=== PATIENT | female | born 1930 | race Caucasian/White ===

== ENCOUNTER 2016-07-15 18:46 | Inpatient (IN) | payer MEDICARE, BC ==
[~2016-07-15 18:46] MED LIST: A THRU Z SELEC1 EAC5 PO; ACETAMINOPHEN500 M1 PO; ACETAMINOPHEN500 M5; ACID CONTROLLER20 MG PO; BENAZEPRIL HCL40 MG PO; DUONEB 2.5-0.5 M3 ML IH; FERROUS SULFAT325 MG PO; FLONASE ALLERG9.9 ML; FLONASE16 G1; FUROSEMIDE40 MG PO; K-DUR10 MEQ PO; LASIX40 M1 PO; LEVOXYL137 MC2 PO; LEVOXYL150 MCG PO; METOPROLOL SUCC50 M1 PO; MILK OF MA400 MG/5 M PO; MIRALAX17 G2 PO; MIRALAX17 GM PO; OMEPRAZOLE20 M2 PO; OMEPRAZOLE20 M3 PO; POTASSIUM CHLO10 ME1 PO; PROPAFENONE HC225 MG PO; SPIRIVA18 MC1 IH; SPIRIVA18 MCG IH; TYLENOL325 MG PO; ULTRAM50 MG PO; VERAPAMIL SR180 MG PO; VERAPAMIL240 MG/TA1 PO; XARELTO15 M1 PO; [UNRECOGNIZED DRUG - OTHER] PO
[2016-07-15 23:49] LABS: BASO % 0.1 % (0-2); HCT-HEMATOCRIT 40.4 % (34.0-49.0); HGB-HEMOGLOBIN 13.6 gm/dl (12.0-15.5); IMMATURE GRANULOCYTES ABSOLUTE 0.05 tho/cmm (0-0.03); IMMATURE GRANULOCYTES PERCENT 0.4 % (0-0.3); LYMPH % 2.3 % (20-45); LYMPH ABSOLUTE COUNT 0.3 tho/cmm (0.8-4.5); MCH (MEAN CORPUSCULAR HGB) 33.9 pg (28.0-32.0); MCHC MEAN CORPUSCULAR HGB CONC 33.7 % (32.0-36.0); MCV (MEAN CELL VOLUME) 100.7 fl (82.0-96.0); MEAN PLATELET VOLUME 10.8 cmc (9.4-12.4); MONOCYTE ABSOLUTE COUNT 0.4 tho/cmm (0.0-1.2); NEUTROPHIL ABSOLUTE COUNT 12.1 tho/cmm (1.6-8.0); NEUTROPHIL-AUTOMATED 12.1 tho/cmm (1.6-8.0); NEUTROPHILS % 94.2 % (40-80); PLATELET COUNT 179 tho/cmm (150-450); RED BLOOD COUNT 4.01 mil/cmm (4.00-5.20); RED CELL DISTRIBUTION WIDTH 12.9 % (12.4-16.4); WHITE BLOOD COUNT 12.9 tho/cmm (4.0-10.0)
[2016-07-15] MEDS ORDERED: PROAIR HFA8.5 GM (23:57)
[2016-07-15] MEDS ORDERED: COLACE100 M1 PO (23:59)
[2016-07-16 00:05] LABS: ANION GAP 9 mmol/L (0-20); BLOOD UREA NITROGEN 24 mg/dl (6-24); CALCIUM 8.6 mg/dl (8.5-10.5); CARBON DIOXIDE-VENOUS 36 mmol/L (22-32); CHLORIDE 93 mmol/l (96-110); CREATININE 0.56 mg/dl (0.50-1.10); GLUCOSE 149 mg/dL (70-110); SODIUM 134 mmol/L (135-145); eGFR VALUE FOR BLACK >90 mL/Min
[2016-07-16 00:06] LABS: POTASSIUM 3.7 mmol/L (3.7-5.1)
[2016-07-16 00:57] LABS: URINE APPEARANCE CLEAR; URINE BILIRUBIN NEGATIVE (NEG); URINE BLOOD LARGE (NEG); URINE COLOR YELLOW; URINE GLUCOSE (UA) NEGATIVE (NEG); URINE KETONE MODERATE (NEG); URINE LEUKOCYTE ESTERASE POSITIVE (NEG); URINE NITRITE POSITIVE (NEG); URINE PROTEIN MODERATE (NEG)
[2016-07-16 01:13] LABS: URINE BACTERIA 1+; URINE RBC 15-20 /[HPF] (0-5); URINE WBC 40-501 /[HPF] (0-5)
[2016-07-16 05:04] LABS: HCT-HEMATOCRIT 36.9 % (34.0-49.0); HGB-HEMOGLOBIN 11.9 gm/dl (12.0-15.5); IMMATURE GRANULOCYTES ABSOLUTE 0.02 tho/cmm (0-0.03); IMMATURE GRANULOCYTES PERCENT 0.2 % (0-0.3); LYMPH ABSOLUTE COUNT 0.4 tho/cmm (0.8-4.5); MCH (MEAN CORPUSCULAR HGB) 33.2 pg (28.0-32.0); MCHC MEAN CORPUSCULAR HGB CONC 32.2 % (32.0-36.0); MCV (MEAN CELL VOLUME) 103.1 fl (82.0-96.0); MEAN PLATELET VOLUME 10.5 cmc (9.4-12.4); MONO % 1.4 % (0-12); MONOCYTE ABSOLUTE COUNT 0.2 tho/cmm (0.0-1.2); NEUTROPHIL ABSOLUTE COUNT 12.6 tho/cmm (1.6-8.0); NEUTROPHIL-AUTOMATED 12.6 tho/cmm (1.6-8.0); NEUTROPHILS % 95.4 % (40-80); PLATELET COUNT 166 tho/cmm (150-450); RED BLOOD COUNT 3.58 mil/cmm (4.00-5.20); RED CELL DISTRIBUTION WIDTH 13.1 % (12.4-16.4); WHITE BLOOD COUNT 13.2 tho/cmm (4.0-10.0)
[2016-07-16 05:24] LABS: ANION GAP 9 mmol/L (0-20); BLOOD UREA NITROGEN 25 mg/dl (6-24); CALCIUM 7.7 mg/dl (8.5-10.5); CARBON DIOXIDE-VENOUS 34 mmol/L (22-32); CHLORIDE 94 mmol/l (96-110); GLUCOSE 184 mg/dL (70-110); POTASSIUM 3.3 mmol/L (3.7-5.1); SODIUM 134 mmol/L (135-145); eGFR VALUE FOR BLACK 63 mL/Min
[2016-07-16 05:29] LABS: CREATININE 0.94 mg/dl (0.50-1.10)
[2016-07-16 23:42] LABS: HCT-HEMATOCRIT 34.9 % (34.0-49.0); HGB-HEMOGLOBIN 11.2 gm/dl (12.0-15.5); IMMATURE GRANULOCYTES ABSOLUTE 0.05 tho/cmm (0-0.03); IMMATURE GRANULOCYTES PERCENT 0.4 % (0-0.3); LYMPH % 3.9 % (20-45); LYMPH ABSOLUTE COUNT 0.5 tho/cmm (0.8-4.5); MCH (MEAN CORPUSCULAR HGB) 33.3 pg (28.0-32.0); MCHC MEAN CORPUSCULAR HGB CONC 32.1 % (32.0-36.0); MCV (MEAN CELL VOLUME) 103.9 fl (82.0-96.0); MEAN PLATELET VOLUME 10.3 cmc (9.4-12.4); MONO % 4.1 % (0-12); MONOCYTE ABSOLUTE COUNT 0.5 tho/cmm (0.0-1.2); NEUTROPHIL ABSOLUTE COUNT 11.7 tho/cmm (1.6-8.0); NEUTROPHIL-AUTOMATED 11.7 tho/cmm (1.6-8.0); NEUTROPHILS % 91.6 % (40-80); PLATELET COUNT 170 tho/cmm (150-450); RED BLOOD COUNT 3.36 mil/cmm (4.00-5.20); RED CELL DISTRIBUTION WIDTH 13.3 % (12.4-16.4); WHITE BLOOD COUNT 12.8 tho/cmm (4.0-10.0)
[2016-07-16 23:54] LABS: ALB/GLOB RATIO 0.6 (0.8-2.0); ALBUMIN 2.5 g/dl (3.5-5.0); ALKALINE PHOSPHATASE 51 U/L (33-138); ALT/SGPT 15 U/L (12-78); ANION GAP 10 mmol/L (0-20); AST/SGOT 15 U/L (10-40); BILIRUBIN,TOTAL 0.8 mg/dl (0-1.5); BLOOD UREA NITROGEN 34 mg/dl (6-24); CALCIUM 7.9 mg/dl (8.5-10.5); CARBON DIOXIDE-VENOUS 35 mmol/L (22-32); CHLORIDE 96 mmol/l (96-110); CREATININE 0.81 mg/dl (0.50-1.10); GLUCOSE 118 mg/dL (70-110); POTASSIUM 3.7 mmol/L (3.7-5.1); SODIUM 137 mmol/L (135-145); eGFR VALUE FOR BLACK 75 mL/Min
[2016-07-17 06:25] LABS: BASO % 0.1 % (0-2); HCT-HEMATOCRIT 34.5 % (34.0-49.0); HGB-HEMOGLOBIN 10.9 gm/dl (12.0-15.5); IMMATURE GRANULOCYTES ABSOLUTE 0.03 tho/cmm (0-0.03); IMMATURE GRANULOCYTES PERCENT 0.2 % (0-0.3); LYMPH % 2.7 % (20-45); LYMPH ABSOLUTE COUNT 0.4 tho/cmm (0.8-4.5); MCHC MEAN CORPUSCULAR HGB CONC 31.6 % (32.0-36.0); MCV (MEAN CELL VOLUME) 104.5 fl (82.0-96.0); MEAN PLATELET VOLUME 10.4 cmc (9.4-12.4); MONOCYTE ABSOLUTE COUNT 0.7 tho/cmm (0.0-1.2); NEUTROPHIL ABSOLUTE COUNT 12.4 tho/cmm (1.6-8.0); NEUTROPHIL-AUTOMATED 12.4 tho/cmm (1.6-8.0); PLATELET COUNT 174 tho/cmm (150-450); RED CELL DISTRIBUTION WIDTH 13.4 % (12.4-16.4); WHITE BLOOD COUNT 13.5 tho/cmm (4.0-10.0)
[2016-07-17 06:46] LABS: ALBUMIN 2.2 g/dl (3.5-5.0); ANION GAP 10 mmol/L (0-20); BLOOD UREA NITROGEN 31 mg/dl (6-24); CALCIUM 7.9 mg/dl (8.5-10.5); CARBON DIOXIDE-VENOUS 36 mmol/L (22-32); CHLORIDE 96 mmol/l (96-110); GLUCOSE 118 mg/dL (70-110); POTASSIUM 3.8 mmol/L (3.7-5.1); SODIUM 138 mmol/L (135-145)
[2016-07-17 06:49] LABS: ALB/GLOB RATIO 0.5 (0.8-2.0); ALKALINE PHOSPHATASE 51 U/L (33-138); ALT/SGPT 16 U/L (12-78); AST/SGOT 12 U/L (10-40); BILIRUBIN,TOTAL 0.5 mg/dl (0-1.5); CREATININE 0.76 mg/dl (0.50-1.10); eGFR VALUE FOR BLACK 81 mL/Min
[2016-07-18 05:48] LABS: HCT-HEMATOCRIT 35.2 % (34.0-49.0); HGB-HEMOGLOBIN 10.8 gm/dl (12.0-15.5); IMMATURE GRANULOCYTES ABSOLUTE 0.06 tho/cmm (0-0.03); IMMATURE GRANULOCYTES PERCENT 0.4 % (0-0.3); LYMPH % 3.3 % (20-45); LYMPH ABSOLUTE COUNT 0.5 tho/cmm (0.8-4.5); MCH (MEAN CORPUSCULAR HGB) 32.6 pg (28.0-32.0); MCHC MEAN CORPUSCULAR HGB CONC 30.7 % (32.0-36.0); MCV (MEAN CELL VOLUME) 106.3 fl (82.0-96.0); MEAN PLATELET VOLUME 10.5 cmc (9.4-12.4); MONOCYTE ABSOLUTE COUNT 0.6 tho/cmm (0.0-1.2); NEUTROPHIL ABSOLUTE COUNT 12.8 tho/cmm (1.6-8.0); NEUTROPHIL-AUTOMATED 12.8 tho/cmm (1.6-8.0); NEUTROPHILS % 92.3 % (40-80); PLATELET COUNT 174 tho/cmm (150-450); RED BLOOD COUNT 3.31 mil/cmm (4.00-5.20); RED CELL DISTRIBUTION WIDTH 13.4 % (12.4-16.4); WHITE BLOOD COUNT 13.8 tho/cmm (4.0-10.0)
[2016-07-18 05:58] LABS: ALB/GLOB RATIO 0.5 (0.8-2.0); ALBUMIN 2.1 g/dl (3.5-5.0); ALKALINE PHOSPHATASE 58 U/L (33-138); ALT/SGPT 15 U/L (12-78); ANION GAP 9 mmol/L (0-20); AST/SGOT 13 U/L (10-40); BILIRUBIN,TOTAL 0.4 mg/dl (0-1.5); BLOOD UREA NITROGEN 28 mg/dl (6-24); CALCIUM 7.9 mg/dl (8.5-10.5); CARBON DIOXIDE-VENOUS 34 mmol/L (22-32); CHLORIDE 98 mmol/l (96-110); GLUCOSE 134 mg/dL (70-110); POTASSIUM 3.9 mmol/L (3.7-5.1); SODIUM 137 mmol/L (135-145); eGFR VALUE FOR BLACK >90 mL/Min
[2016-07-19 11:43] LABS: ABG CO2 ARTERIAL 39 mmol/L (21-27); ARTERIAL BLD GAS O2 SATURATION 94 % (95-98); ARTERIAL PO2 71 mmHg (70-100); BICARBONATE 36 mmol/L (21-28); BLOOD GAS BASE EXCESS 5 mM/L (-/+3)
[2016-07-19 11:45] LABS: ARTERIAL BLOOD GAS PCO2 95 mmHg (32-45)
[2016-07-19 13:31] LABS: ABG CO2 ARTERIAL 36 mmol/L (21-27); ARTERIAL BLD GAS O2 SATURATION 99 % (95-98); BICARBONATE 34 mmol/L (21-28); BLOOD GAS BASE EXCESS 7 mM/L (-/+3)
[2016-07-19 13:32] LABS: ARTERIAL BLOOD GAS PCO2 63 mmHg (32-45); ARTERIAL PO2 142 mmHg (70-100); PH 7.35 Units (7.35-7.45)
[2016-07-21 05:43] LABS: ABG CO2 ARTERIAL 36 mmol/L (21-27); ARTERIAL BLD GAS O2 SATURATION 98 % (95-98); ARTERIAL BLOOD GAS PCO2 50 mmHg (32-45); ARTERIAL PO2 105 mmHg (70-100); BICARBONATE 35 mmol/L (21-28); BLOOD GAS BASE EXCESS 10 mM/L (-/+3); PH 7.46 Units (7.35-7.45)
[2016-07-21 07:06] LABS: BASO % 0.3 % (0-2); EOS % 0.4 % (0-7); HGB-HEMOGLOBIN 12.3 gm/dl (12.0-15.5); IMMATURE GRANULOCYTES ABSOLUTE 0.27 tho/cmm (0-0.03); IMMATURE GRANULOCYTES PERCENT 2.6 % (0-0.3); LYMPH % 9.6 % (20-45); MCH (MEAN CORPUSCULAR HGB) 33.1 pg (28.0-32.0); MCHC MEAN CORPUSCULAR HGB CONC 32.4 % (32.0-36.0); MCV (MEAN CELL VOLUME) 102.2 fl (82.0-96.0); MEAN PLATELET VOLUME 9.8 cmc (9.4-12.4); MONO % 10.4 % (0-12); MONOCYTE ABSOLUTE COUNT 1.1 tho/cmm (0.0-1.2); NEUTROPHIL ABSOLUTE COUNT 7.9 tho/cmm (1.6-8.0); NEUTROPHIL-AUTOMATED 7.9 tho/cmm (1.6-8.0); NEUTROPHILS % 76.7 % (40-80); PLATELET COUNT 218 tho/cmm (150-450); RED BLOOD COUNT 3.72 mil/cmm (4.00-5.20); RED CELL DISTRIBUTION WIDTH 13.3 % (12.4-16.4); WHITE BLOOD COUNT 10.4 tho/cmm (4.0-10.0)
[2016-07-21 07:10] LABS: ALB/GLOB RATIO 0.5 (0.8-2.0); ALKALINE PHOSPHATASE 58 U/L (33-138); ALT/SGPT 10 U/L (12-78); BILIRUBIN,TOTAL 0.6 mg/dl (0-1.5); BLOOD UREA NITROGEN 19 mg/dl (6-24); CALCIUM 8.2 mg/dl (8.5-10.5); CARBON DIOXIDE-VENOUS 33 mmol/L (22-32); CHLORIDE 99 mmol/l (96-110); CREATININE 0.38 mg/dl (0.50-1.10); GLUCOSE 96 mg/dL (70-110); SODIUM 139 mmol/L (135-145); eGFR VALUE FOR BLACK >90 mL/Min
[2016-07-21 07:15] LABS: ANION GAP 11 mmol/L (0-20); AST/SGOT 15 U/L (10-40); POTASSIUM 3.9 mmol/L (3.7-5.1)
[2016-07-22 05:54] LABS: HCT-HEMATOCRIT 38.4 % (34.0-49.0); HGB-HEMOGLOBIN 12.5 gm/dl (12.0-15.5); MCHC MEAN CORPUSCULAR HGB CONC 32.6 % (32.0-36.0); MCV (MEAN CELL VOLUME) 101.3 fl (82.0-96.0); MEAN PLATELET VOLUME 9.6 cmc (9.4-12.4); NEUTROPHIL-AUTOMATED 8.6 tho/cmm (1.6-8.0); PLATELET COUNT 241 tho/cmm (150-450); RED BLOOD COUNT 3.79 mil/cmm (4.00-5.20); RED CELL DISTRIBUTION WIDTH 13.2 % (12.4-16.4); WHITE BLOOD COUNT 11.5 tho/cmm (4.0-10.0)
[2016-07-22 06:07] LABS: BLOOD UREA NITROGEN 12 mg/dl (6-24); CHLORIDE 93 mmol/l (96-110); CREATININE 0.38 mg/dl (0.50-1.10); GLUCOSE 126 mg/dL (70-110); MAGNESIUM 1.6 mg/dl (1.3-2.6); SODIUM 137 mmol/L (135-145); eGFR VALUE FOR BLACK >90 mL/Min
[2016-07-22 06:11] LABS: TSH-THYROID STIMULATING HORM. 3.37 uIU/ml (0.40-3.80)
[2016-07-22 06:18] LABS: ANION GAP 7 mmol/L (0-20); CARBON DIOXIDE-VENOUS 40 mmol/L (22-32)
[2016-07-22 06:57] LABS: PROCALCITONIN 0.39 ng/ml (0.05-0.09)
[2016-07-22 08:02] LABS: BAND % 15 % (0-20); BAND ABSOLUTE COUNT 1.7 tho/cmm (0-2.0)
[2016-07-22 08:03] LABS: WBC MORPHOLOGY VACUOLES
[2016-07-23 06:14] LABS: BLOOD UREA NITROGEN 11 mg/dl (6-24); CALCIUM 8.6 mg/dl (8.5-10.5); CARBON DIOXIDE-VENOUS 37 mmol/L (22-32); CHLORIDE 99 mmol/l (96-110); CREATININE 0.41 mg/dl (0.50-1.10); GLUCOSE 97 mg/dL (70-110); SODIUM 140 mmol/L (135-145); eGFR VALUE FOR BLACK >90 mL/Min
[2016-07-23 06:28] LABS: ANION GAP 9 mmol/L (0-20); MAGNESIUM 1.8 mg/dl (1.3-2.6); POTASSIUM 4.9 mmol/L (3.7-5.1)
[2016-07-24 04:55] LABS: ABG CO2 ARTERIAL 37 mmol/L (21-27); ARTERIAL BLD GAS O2 SATURATION 97 % (95-98); ARTERIAL BLOOD GAS PCO2 53 mmHg (32-45); ARTERIAL PO2 85 mmHg (70-100); BICARBONATE 35 mmol/L (21-28); BLOOD GAS BASE EXCESS 10 mM/L (-/+3); PH 7.44 Units (7.35-7.45)
[2016-07-26] MEDS ORDERED: VENTOLIN HFA18 G2 PO (12:53)
[2016-07-26] MEDS ORDERED: ALBUTEROL2.5 MG/3 M NEB (12:56)
[2016-07-26] MEDS ORDERED: CALAN SR180 M1 PO (12:57)
[2016-07-26] MEDS ORDERED: TOPROL XL25 M1 PO (13:01)
[2016-07-26] MEDS ORDERED: TYLENOL325 M2 PO (13:04)
[2016-07-26] MEDS ORDERED: PULMICORT0.5 MG/22 NEB (13:05)
[2016-07-26] MEDS ORDERED: LORAZEPAM I2 MG/1 ML PO (14:20)
[2016-07-26] MEDS ORDERED: MORPHINE S20 MG/1 M1 PO/SL (14:22)
== END 2016-07-26 16:33 | disposition hospice, inpatient (51) | DRG 391 ==
LOC: EDMED 18:46 → EMR2 07-16 02:03 → 5WD 07-16 03:39 → PCUB 07-19 14:05
PROVIDERS: Emergency Medicine; Internal Medicine; Internal Medicine Critical Care Medicine; Internal Medicine Pulmonary Disease; Registered Nurse; ADMIT Hospitalist
PROC: 05HC33Z Insertion of Infusion Device into Left Basilic Vein, Percutaneous Approach (ICD-10-PCS; principal; 2016-07-19)
DX: K57.92 Diverticulitis of intestine, part unspecified, without perforation or abscess without bleeding (principal); J96.22 Acute and chronic respiratory failure with hypercapnia; J96.21 Acute and chronic respiratory failure with hypoxia; J15.9 Unspecified bacterial pneumonia; J91.8 Pleural effusion in other conditions classified elsewhere; J44.0 Chronic obstructive pulmonary disease with (acute) lower respiratory infection; K56.7 Ileus, unspecified; J44.1 Chronic obstructive pulmonary disease with (acute) exacerbation; N39.0 Urinary tract infection, site not specified; Z99.81 Dependence on supplemental oxygen; I48.2 Chronic atrial fibrillation; H91.90 Unspecified hearing loss, unspecified ear; E87.6 Hypokalemia; N63 Unspecified lump in breast; Z79.01 Long term (current) use of anticoagulants; I10 Essential (primary) hypertension; I25.10 Atherosclerotic heart disease of native coronary artery without angina pectoris; E03.9 Hypothyroidism, unspecified; I83.90 Asymptomatic varicose veins of unspecified lower extremity; H35.30 Unspecified macular degeneration; K21.9 Gastro-esophageal reflux disease without esophagitis; Z66 Do not resuscitate; Z87.891 Personal history of nicotine dependence; Y95 Nosocomial condition; M40.209 Unspecified kyphosis, site unspecified; D50.9 Iron deficiency anemia, unspecified; Z53.8 Procedure and treatment not carried out for other reasons; R00.0 Tachycardia, unspecified; Z51.5 Encounter for palliative care
CPT/HCPCS: C1751; J1120; J1940; J1956; J2270; J2405; J2543; J3370; J7030; J7050; Q9967